=== PATIENT | male | born 1965 | race Caucasian/White ===

== ENCOUNTER 2018-09-09 09:29 | Outpatient (RCR) | payer MEDICARE, MEDICAID ==
[2018-09-02 13:30] VITALS: BP 122/78
[2018-09-02 14:22] LABS: PLATELET COUNT, AUTOMATED 217 K/uL (150-450)
--- NOTE | 2018-09-02 14:50 | ONCOLOGY CONSULTATION ---
EVENT DATE: September 02, 2018 REFERRING PHYSICIAN KATE Yeboah REASON FOR CONSULTATION Evaluation and management of neutrophilic leukocytosis. HEMATOLOGY HISTORY Patient is a 52-year-old [employer] client with Down syndrome, who is followed by Danette Roy. He has a significant past medical history for hyperlipidemia and sleep apnea. Patient was found lately to have neutrophilic leukocytosis. He recovered recently from upper respiratory tract infection. His CBC on the July showed white count 11.7, hemoglobin 16.9, hematocrit 50.7, platelet count 241,000, MCV 99. His differential count showed absolute neutrophil count high at 8.2, normal absolute lymphocytic count at 2.2, and high absolute monocytic count at 1. Patient denies any symptoms currently. He has cough with expectoration, which recovered already. PAST MEDICAL HISTORY 1. Hyperlipidemia. 2. Sleep apnea, but patient does not like oxygen. PAST SURGICAL HISTORY None significant in his chart. SOCIAL HISTORY Patient is an [employer] client. He lives by himself. 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 No abuse of tobacco, alcohol, or drugs. FAMILY HISTORY No known health problems. CURRENT MEDICATIONS 1. Tylenol 500 mg tablet, two tablets every four to six hours p.r.n. 2. Allopurinol 300 mg tablet, one tablet daily. 3. Antacid 500 mg two tablets p.r.n. 4. Anti-diarrheal, Imodium two tablets after two watery stools. 5. Atorvastatin 10 mg at bedtime daily. 6. Bacitracin 500 units/g topical ointment p.r.n. 7. Biofreeze 0.2% to 3.5% topical gel p.r.n. 8. Debrox 6.5% otic solution, one drop both ears b.i.d. as needed. 9. Famotidine 20 mg b.i.d. 10. Hydrocortisone 1% topical cream, apply small amount p.r.n. 11. Ibuprofen 200 mg two tablets every six to eight hours p.r.n. 12. Naproxen sodium 220 mg one tablet q.12 hours p.r.n. for pain. 13. Oxygen 2L per minute at bedtime. 14. Robafen 100 mg/5 mL oral liquid, 20 mL p.r.n. for congestion. 15. Vitamin D3 at 2000 units two capsules daily. ALLERGIES ASPIRIN, DETERGENTS, MOUTH WASH. REVIEW OF SYSTEMS CONSTITUTIONAL: No appetite or weight change. No fever, chills, or sweating. No recent infection. HEENT: Ears: No tinnitus or hearing problem. Nose: No nasal discharge or epistaxis. Throat: No sore throat or mouth ulcers. Eyes: No diplopia or visual changes. RESPIRATORY: No shortness of breath. No cough, expectoration, or hemoptysis. CARDIOVASCULAR: No chest pain, orthopnea, or paroxysmal nocturnal dyspnea (PND). No edema. No palpitations. GASTROINTESTINAL: No nausea or vomiting. No diarrhea or constipation. No change in bowel movements. No heartburn or swallowing difficulties. No abdominal pain. No jaundice. No hematemesis, melena, or rectal bleeding. GENITOURINARY: No hematuria or dysuria. MUSCULOSKELETAL: No pain in the muscles, joints, or bones. NEUROLOGIC: No tingling or numbness in the hands or feet. No headaches or convulsions. HEMATOLOGIC/LYMPHATIC: No bleeding or easy bruising. No weakness or fatigue. No enlarged lymph nodes. SKIN: No skin rash or lumps. PSYCHIATRIC: No anxiety or depression. PHYSICAL EXAMINATION GENERAL: Looks stable. Well developed, well nourished, and in no acute distress. VITAL SIGNS: Blood pressure 122/78, pulse 86 per minute, respirations 16 per minute, temperature 97.6, pulse ox 93% on room air. HEENT: Head: Atraumatic. No sinus tenderness to palpation. Eyes: No icterus or conjunctivitis. Mouth and Throat: No oral thrush or mucositis. NECK: Supple. No cervical or supraclavicular lymphadenopathy. LUNGS: Clear to auscultation and percussion bilaterally. HEART: Regular rate and rhythm. No gallops, murmurs, clicks, or rubs. ABDOMEN: Soft and lax. No tenderness. No hepatosplenomegaly. No masses. EXTREMITIES: No cyanosis, clubbing, or edema. LYMPHATICS: No peripheral lymphadenopathy. NEUROLOGIC: Patient has Down syndrome. Conscious, alert, and oriented times three. No focal motor or sensory deficits. PSYCHIATRIC: Mood and affect appear normal. SKIN: No skin rash, bruise, or purpuric eruption. ASSESSMENT Neutrophilic leukocytosis with recent history of upper respiratory tract infection. This could be the reason why his white count and neutrophils were high recently. His white count was 11.7, slightly elevated, as well as his neutrophil count. His absolute neutrophil count was 8.2, and absolute monocytic count was 1. I am planning to run simple tests to decide if we are going to investigate for more molecular testing or not to rule out the possibility of myeloproliferative disorder. I am planning to check his CBC, leukocyte alkaline phosphatase score, C-reactive protein, erythrocyte sedimentation rate, and fibrinogen level, which are the parameters for inflammation. Further evaluation and management will dependent on the results of those tests. PLAN 1. CBC. 2. ESR. 3. C-reactive protein. 4. Fibrinogen level. 5. LAP score. 6. Patient to return after the above for further evaluation and management. 7. Patient to contact us for any new concern or complaints. MIRIAM
[~2018-09-09 09:29] MED LIST: ACET-2043 PO; ALLO-119 PO; AMOX-362 PO; ATOR10TA24 PO; BACOO TOP; CALC300T21 PO; CARB15DR93 OT; CHOL10005 PO; FAMO-67 PO; GUAI-244 PO; IBUP-56 PO; LOPE-84 PO; MENT118G; NAPR-744 PO; OXYGENHOME INH; [UNRECOGNIZED DRUG - OTHER] TOP
[2018-09-09 09:31] VITALS: BP 133/79
--- NOTE | 2018-09-09 11:42 | [facility] ONCOLOGY NOTE ---
EVENT DATE: September 09, 2018 DIAGNOSIS Neutrophilic leukocytosis. CHIEF COMPLAINT Patient is here today for followup of his neutrophilic leukocytosis. HEMATOLOGY HISTORY Patient is a 52-year-old [employer] client with Down syndrome, who is followed by Danette Roy. He has a significant past medical history for hyperlipidemia and sleep apnea. Patient was found lately to have neutrophilic leukocytosis. He recovered recently from upper respiratory tract infection. His CBC on the July showed white count 11.7, hemoglobin 16.9, hematocrit 50.7, platelet count 241,000, MCV 99. His differential count showed absolute neutrophil count high at 8.2, normal absolute lymphocytic count at 2.2, and high absolute monocytic count at 1. Patient denies any symptoms currently. He has cough with expectoration, which recovered already. Repeat CBC showed white count 13.5, ANC 10.1. Platelets and hemoglobin were normal. C-reactive protein was 3.2. ESR 17, fibrinogen 501. LAP score was normal at 120. HISTORY OF PRESENT ILLNESS Patient is here today for followup of his neutrophilic leukocytosis. He is doing very well currently and denies any complaints today. PAST MEDICAL HISTORY 1. Hyperlipidemia. 2. Sleep apnea, but patient does not like oxygen. PAST SURGICAL HISTORY None significant in his chart. SOCIAL HISTORY Patient is an [employer] client. He lives by himself. 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 No abuse of tobacco, alcohol, or drugs. FAMILY HISTORY No known health problems. CURRENT MEDICATIONS 1. Tylenol 500 mg tablet, two tablets every four to six hours p.r.n. 2. Allopurinol 300 mg tablet, one tablet daily. 3. Antacid 500 mg two tablets p.r.n. 4. Anti-diarrheal, Imodium two tablets after two watery stools. 5. Atorvastatin 10 mg at bedtime daily. 6. Bacitracin 500 units/g topical ointment p.r.n. 7. Biofreeze 0.2% to 3.5% topical gel p.r.n. 8. Debrox 6.5% otic solution, one drop both ears b.i.d. as needed. 9. Famotidine 20 mg b.i.d. 10. Hydrocortisone 1% topical cream, apply small amount p.r.n. 11. Ibuprofen 200 mg two tablets every six to eight hours p.r.n. 12. Naproxen sodium 220 mg one tablet q.12 hours p.r.n. for pain. 13. Oxygen 2L per minute at bedtime. 14. Robafen 100 mg/5 mL oral liquid, 20 mL p.r.n. for congestion. 15. Vitamin D3 at 2000 units two capsules daily. ALLERGIES ASPIRIN, DETERGENTS, MOUTH WASH. REVIEW OF SYSTEMS CONSTITUTIONAL: No appetite or weight change. No fever, chills, or sweating. No recent infection. HEENT: Ears: No tinnitus or hearing problem. Nose: No nasal discharge or epistaxis. Throat: No sore throat or mouth ulcers. Eyes: No diplopia or visual changes. RESPIRATORY: No shortness of breath. No cough, expectoration, or hemoptysis. CARDIOVASCULAR: No chest pain, orthopnea, or paroxysmal nocturnal dyspnea (PND). No edema. No palpitations. GASTROINTESTINAL: No nausea or vomiting. No diarrhea or constipation. No change in bowel movements. No heartburn or swallowing difficulties. No abdominal pain. No jaundice. No hematemesis, melena, or rectal bleeding. GENITOURINARY: No hematuria or dysuria. MUSCULOSKELETAL: No pain in the muscles, joints, or bones. NEUROLOGIC: No tingling or numbness in the hands or feet. No headaches or convulsions. HEMATOLOGIC/LYMPHATIC: No bleeding or easy bruising. No weakness or fatigue. No enlarged lymph nodes. SKIN: No skin rash or lumps. PSYCHIATRIC: No anxiety or depression. PHYSICAL EXAMINATION GENERAL: Looks stable. Well developed, well nourished, and in no acute distress. VITAL SIGNS: Blood pressure 173/79, pulse 89 per minute, respirations 16 per minute, temperature 97.2, pulse ox 93% on room air. HEENT: Head: Atraumatic. No sinus tenderness to palpation. Eyes: No icterus or conjunctivitis. Mouth and Throat: No oral thrush or mucositis. NECK: Supple. No cervical or supraclavicular lymphadenopathy. LUNGS: Clear to auscultation and percussion bilaterally. HEART: Regular rate and rhythm. No gallops, murmurs, clicks, or rubs. ABDOMEN: Soft and lax. No tenderness. No hepatosplenomegaly. No masses. EXTREMITIES: No cyanosis, clubbing, or edema. LYMPHATICS: No peripheral lymphadenopathy. NEUROLOGIC: Patient has Down syndrome. Conscious, alert, and oriented times three. No focal motor or sensory deficits. PSYCHIATRIC: Mood and affect appear normal. SKIN: No skin rash, bruise, or purpuric eruption. DIAGNOSTIC DATA CBC showed white count 13.5, hemoglobin 16.5, hematocrit 48.7, platelets 217,000, ANC 10.1. C-reactive protein 3.2. ESR 17. LAP score 120. Fibrinogen 501. ASSESSMENT Neutrophilic leukocytosis. Current white count is 13.5 and ANC 10.1. His platelet and hemoglobin are within the normal range. His blood work done showed evidence of inflammatory process in his body. His fibrinogen was high at 501. C-reactive protein 3.2 while ESR is 17. LAP score was normal at 120. Those results are suggestive of an underlying inflammatory process so his neutrophilic leukocytosis could be inflammatory in nature. I am planning to see him again in six months with repeat CBC at that time but I am planning to refer the patient back to KATE Yeboah, for evaluation of an underlying inflammatory process. PLAN 1. Continue followup. 2. Patient to return in six months with CBC. 3. Patient to contact us for any new concern or complaints. MIRIAM
== END 2018-09-27 15:52 | disposition home or self-care (01) ==
LOC: ONC 09:29
PROVIDERS: ATTEND Internal Medicine Hematology
DX: D72.828 Other elevated white blood cell count (principal); Q90.9 Down syndrome, unspecified
CPT/HCPCS: 36415; 85025; 85384; 85540; 85651; 86140; G0463; 99202; 99212

== ENCOUNTER → 2018-11-02 | Outpatient (CLI) | payer MEDICARE, MEDICAID ==
[~2018-11-02] MED LIST changes: +IOPAMIDOL 76% 100 ML INFUS BTL 0 ML ONE
--- NOTE | 2018-11-02 11:57 | RADIOLOGY IMAGING REPORT ---
FACILITY: [facility] - [place] PATIENT NAME: Peña Maza : 1965 MR: [id number] V: [id number] EXAM DATE: ORDERING PHYSICIAN: CHRISTIANO COLMENARES TECHNOLOGIST: Location: [facility] - [place] Patient: Peña Maza : 1965 Visit/Account:[id number] Date of Sevice: 11/02/2018 Exam type: CHEST PA LAT History: Chest pain Comparison: March 12, 2018. Findings: Patient is made a limited inspiratory effort producing crowding the bronchovascular markings bilatera lly. There is no evidence of a pneumothorax or pneumomediastinum There is no evidence of acute appea ring infiltrates, pleural effusions or pulmonary edema. Cardiac silhouette is normal in size. IMPRESSION: 1. Hypoventilatory changes from a limited inspiratory effort although no evidence of acute pulmonary consolidation seen Report Dictated By: Rubi Pretty MD at 11/02/2018 11:46 AM Report E-Signed By: Rubi Pretty MD at 11/02/2018 11:47 AM WSN:[id number]
--- NOTE | 2018-11-02 14:49 | RADIOLOGY IMAGING REPORT ---
FACILITY: [facility] [place] PATIENT NAME: Peña Maza : 1965 MR: [id number] V: [id number] EXAM DATE: ORDERING PHYSICIAN: CHRISTIANO COLMENARES TECHNOLOGIST: Location: [facility] [place] Patient: Peña Maza : 1965 Visit/Account:[id number] Date of Sevice: 11/02/2018 CT ABDOMEN PELVIS W/O CON HISTORY: Chronic neutrophilia, colicky abdomen pain, elevated white cell count, upper respiratory in fection TECHNIQUE: Axial images acquired through the abdomen/pelvis. Coronal and sagittal reformatting also performed. No IV contrast administered.Dose Lowering Technique One of the following dose optimization techniques was utilized in the performance of this exam: Autom ated exposure control; adjustment of the mA and/or kV according to the patient's size; or use of an i terative reconstruction technique. Specific details can be referenced in the facility's radiology C T exam operational policy. COMPARISON: None. FINDINGS: Visualized lung bases: There is extensive motion artifact present. Suggestion of patchy groundglass opacities could be related to respiratory motion versus scarring or groundglass infiltrates Hepatobiliary: Cholelithiasis although no evidence of biliary ductal dilatation Spleen: Negative. Adrenals: Negative. Pancreas: Fatty infiltration of the pancreas Kidneys ureters and bladder: Negative. Genitalia: Negative. GI: There is diverticulosis of the left-sided colon although no CT evidence of acute diverticulitis. Nonobstructed sigmoid colon colon is located in the left inguinal hernia Vessels/spaces/nodes: There is an incidental retroaortic left renal vein Bones/soft tissues: There is a large left inguinal hernia containing fat and nonobstructed sigmoid c olon. There is a large periumbilical hernia containing fat and a knuckle of nonobstructed small patrizia l Additional findings: None pertinent. IMPRESSION: There is diverticulosis of the left side of the colon although no CT evidence of acute diverticulitis There is a large left inguinal hernia containing fat and nonobstructed small bowel There is a a large umbilical hernia containing fat and a knuckle of nonobstructed small bowel Groundglass opacities in the lower lung reyes may be related to motion artifact versus scarring or g roundglass infiltrates Cholelithiasis although no evidence of biliary ductal dilatation Report Dictated By: Rubi Pretty MD at 11/02/2018 2:21 PM Report E-Signed By: Rubi Pretty MD at 11/02/2018 2:40 PM TONYN:[email or web address]
== END ==
LOC: CT 00:44
PROVIDERS: ATTEND Nurse Practitioner Family
DX: K80.20 Calculus of gallbladder without cholecystitis without obstruction (principal); K40.90 Unilateral inguinal hernia, without obstruction or gangrene, not specified as recurrent; K42.9 Umbilical hernia without obstruction or gangrene
CPT/HCPCS: 71046; 74176; Q9967